=== PATIENT | male | born 1940 | race Caucasian/White ===

== ENCOUNTER 2017-12-02 08:46 | Outpatient (CLI) | payer OTHER, MEDICARE ==
[~2017-12-02 08:46] MED LIST: APIX5TAB3 PO; ASPI-612 PO; CLOP75TA35 PO; FINA5TAB11 PO; FLAX100031 PO; OMEG1CAP54 PO; ZOC40T PO
[2017-12-02 09:23] LABS: ALANINE AMINOTRANSFERASE 27 U/L (12-78); ALBUMIN 3.5 G/DL (3.4-5.0); ALBUMIN/GLOBULIN RATIO 0.9 (1.1-1.5); ALKALINE PHOSPHATASE 81 IU/L (46-116); ANION GAP 5 (8-16); ASPARTATE AMINO TRANSFERASE 17 U/L (10-37); BILIRUBIN,TOTAL 0.8 MG/DL (0.1-1.0); BLOOD UREA NITROGEN 15 MG/DL (7-18); BUN/CREATININE RATIO 13.5 (5.4-32.0); CHLORIDE 106 MMOL/L (99-107); CHOLESTEROL 100 MG/DL (0-200); CREATININE 1.11 MG/DL (0.60-1.10); GLUCOSE 125 MG/DL (70-104); HDL CHOLESTEROL 33 MG/DL (35-60); LDL CHOLESTEROL 60 MG/DL (50-100); POTASSIUM 4.4 MMOL/L (3.5-5.1); SODIUM 142 MMOL/L (135-145); TOTAL CARBON DIOXIDE 30.7 MMOL/L (24-32); TOTAL PROTEIN 7.4 G/DL (6.4-8.2); TRIGLYCERIDES 53 MG/DL (20-135); eGFR 64 ML/MIN
== END 2017-12-02 23:59 | disposition home or self-care (01) ==
LOC: VAS 08:46
PROVIDERS: ATTEND Internal Medicine Interventional Cardiology
DX: I65.23 Occlusion and stenosis of bilateral carotid arteries (principal); I71.4 Abdominal aortic aneurysm, without rupture; I25.810 Atherosclerosis of coronary artery bypass graft(s) without angina pectoris; J44.9 Chronic obstructive pulmonary disease, unspecified; E78.4 Other hyperlipidemia; F17.200 Nicotine dependence, unspecified, uncomplicated; Z98.890 Other specified postprocedural states
CPT/HCPCS: 36415; 80053; 80061; 93880; 93978

== ENCOUNTER 2018-02-13 08:03 | Outpatient (CLI) | payer OTHER, MEDICARE ==
[2018-02-13 08:59] LABS: ALANINE AMINOTRANSFERASE 36 U/L (12-78); ALBUMIN 3.5 G/DL (3.4-5.0); ALBUMIN/GLOBULIN RATIO 0.9 (1.1-1.5); ALKALINE PHOSPHATASE 100 IU/L (46-116); ANION GAP 4 (8-16); ASPARTATE AMINO TRANSFERASE 21 U/L (10-37); BILIRUBIN,TOTAL 0.5 MG/DL (0.1-1.0); BLOOD UREA NITROGEN 17 MG/DL (7-18); BUN/CREATININE RATIO 14.7 (5.4-32.0); CHLORIDE 104 MMOL/L (99-107); CHOL/HDL RATIO 3.7 (0.00-4.99); CHOLESTEROL 110 MG/DL (0-200); CREATININE 1.16 MG/DL (0.60-1.10); GLUCOSE 139 MG/DL (70-104); HDL CHOLESTEROL 30 MG/DL (35-60); LDL CHOLESTEROL 63 MG/DL (50-100); POTASSIUM 4.4 MMOL/L (3.5-5.1); SODIUM 139 MMOL/L (135-145); TOTAL CARBON DIOXIDE 30.7 MMOL/L (24-32); TOTAL PROTEIN 7.4 G/DL (6.4-8.2); TRIGLYCERIDES 86 MG/DL (20-135); eGFR 61 ML/MIN
== END 2018-02-13 23:59 | disposition home or self-care (01) ==
LOC: LAB 08:03
PROVIDERS: ATTEND Family Medicine
DX: Z00.01 Encounter for general adult medical examination with abnormal findings (principal); E78.4 Other hyperlipidemia; F17.200 Nicotine dependence, unspecified, uncomplicated; J44.9 Chronic obstructive pulmonary disease, unspecified; N40.0 Benign prostatic hyperplasia without lower urinary tract symptoms; Z79.82 Long term (current) use of aspirin; Z98.890 Other specified postprocedural states
CPT/HCPCS: 36415; 80053; 80061; 84153

== ENCOUNTER 2018-02-15 15:25 | Outpatient (CLI) | payer OTHER, MEDICARE | END 2018-02-15 23:59 | disposition home or self-care (01) | LOC: RAD 15:25 | PROVIDERS: ATTEND Nurse Practitioner Family | DX: I51.7 Cardiomegaly (principal); J44.9 Chronic obstructive pulmonary disease, unspecified; F17.200 Nicotine dependence, unspecified, uncomplicated | CPT/HCPCS: 71046; 87081 ==

== ENCOUNTER 2018-03-20 08:51 | Emergency (ER) | payer OTHER, MEDICARE ==
[~2018-03-20] VITALS: Ht 175.3 cm; Wt 86.5 kg
[2018-03-20] MEDS ORDERED: ipratropium/albuterol 3ml nebule NEB ONE (09:20)
[2018-03-20] MEDS ORDERED: methylPREDNISolone sod succ 125mg/2ml vial IV ONE (09:20)
[2018-03-20] MEDS ORDERED: normal saline 1000ML IV soln IVB ONE (09:20)
[2018-03-20] MEDS ORDERED: normal saline 1000ML IV soln IV ONE (09:30)
[2018-03-20 09:41] LABS: BASOPHILS # (AUTO) 0.1 X10'3 (0-0.2); BASOPHILS % (AUTO) 0.7 % (0-1); EOSINOPHILS # (AUTO) 0.3 X10'3 (0-0.9); EOSINOPHILS % (AUTO) 3.6 % (0-6); HEMATOCRIT 50.2 % (42.0-52.0); LYMPHOCYTES # (AUTO) 3.2 X10'3 (1.1-4.8); MEAN CORPUSCULAR HEMOGLOBIN 30.7 PG (27.0-31.0); MEAN CORPUSCULAR HGB CONC 33.8 % (33.0-36.5); MEAN CORPUSCULAR VOLUME 90.7 FL (78-98); MEAN PLATELET VOLUME 8.3 FL (7.4-10.4); MONOCYTES # (AUTO) 0.4 X10'3 (0-0.9); MONOCYTES % (AUTO) 5.6 % (2-12); NEUTROPHILS % (AUTO) 50.1 % (42-75); PLATELET COUNT 179 X10'3 (140-440); RED BLOOD COUNT 5.54 X10'6 (4.70-6.10); RED CELL DISTRIBUTION WIDTH 14.6 % (11.5-14.5)
[2018-03-20] MEDS ORDERED: tetanus & diphtheria toxoid (Td) vaccine 0.5ml IMVAC ONE (09:50)
[2018-03-20] MEDS ORDERED: TETanus/Pertussis (Acell)/Diphther VAC/PF (Tdap-Adult) 0.5ml syringe IMVAC ONE (09:55)
[2018-03-20 10:01] LABS: ALANINE AMINOTRANSFERASE 27 U/L (12-78); ALBUMIN 3.4 G/DL (3.4-5.0); ALBUMIN/GLOBULIN RATIO 0.9 (1.1-1.5); ALKALINE PHOSPHATASE 93 IU/L (46-116); ANION GAP 9 (8-16); ASPARTATE AMINO TRANSFERASE 17 U/L (10-37); BILIRUBIN,TOTAL 0.5 MG/DL (0.1-1.0); BLOOD UREA NITROGEN 17 MG/DL (7-18); BUN/CREATININE RATIO 19.5 (5.4-32.0); CALCIUM 9.2 MG/DL (8.5-10.1); CHLORIDE 105 MMOL/L (99-107); CREATININE 0.87 MG/DL (0.60-1.10); GLUCOSE 103 MG/DL (70-104); SODIUM 138 MMOL/L (135-145); TOTAL CARBON DIOXIDE 23.9 MMOL/L (24-32); TOTAL PROTEIN 7.2 G/DL (6.4-8.2); eGFR 85 ML/MIN
[2018-03-20] MEDS ORDERED: AZIT250T2 PO (10:35)
[2018-03-20] MEDS ORDERED: PRED20TA PO (10:36)
[2018-03-20] MEDS ORDERED: ALBU6.7H INH (10:36)
[2018-03-20 11:21] VITALS: BP 150/91
== END 2018-03-20 11:23 | disposition home or self-care (01) ==
LOC: ER 08:51
DX: J44.1 Chronic obstructive pulmonary disease with (acute) exacerbation (principal); I25.10 Atherosclerotic heart disease of native coronary artery without angina pectoris; E78.00 Pure hypercholesterolemia, unspecified; Z86.73 Personal history of transient ischemic attack (TIA), and cerebral infarction without residual deficits; F17.200 Nicotine dependence, unspecified, uncomplicated; Z95.1 Presence of aortocoronary bypass graft; Z79.82 Long term (current) use of aspirin; Z79.899 Other long term (current) drug therapy
CPT/HCPCS: 36415; 71046; 80053; 83605; 84145; 85025; 87040; 87081; 90471; 90715; 93005; 94640; 94760; 96374; 99285; J2930; J7030

== ENCOUNTER 2018-04-19 08:51 | Outpatient (CLI) | payer OTHER, MEDICARE ==
[~2018-04-19 08:51] MED LIST changes: +ALBU6.7H INH
== END 2018-04-19 23:59 | disposition home or self-care (01) ==
LOC: 64 CT 08:51
PROVIDERS: ATTEND Nurse Practitioner Family
DX: Z12.2 Encounter for screening for malignant neoplasm of respiratory organs (principal); R91.1 Solitary pulmonary nodule; F17.210 Nicotine dependence, cigarettes, uncomplicated; I25.2 Old myocardial infarction; J44.9 Chronic obstructive pulmonary disease, unspecified
CPT/HCPCS: 71250

== ENCOUNTER 2018-06-08 10:49 | Emergency (ER) | payer OTHER, MEDICARE ==
[~2018-06-08] VITALS: Ht 175.3 cm; Wt 88.6 kg
[2018-06-08 11:19] LABS: BASOPHILS % (AUTO) 0.5 % (0-1); EOSINOPHILS # (AUTO) 0.2 X10'3 (0-0.9); EOSINOPHILS % (AUTO) 2.9 % (0-6); HEMATOCRIT 49.8 % (42.0-52.0); HEMOGLOBIN 16.6 g/dl (14.0-17.9); LYMPHOCYTES # (AUTO) 2.3 X10'3 (1.1-4.8); LYMPHOCYTES % (AUTO) 33.2 % (21-51); MEAN CORPUSCULAR HEMOGLOBIN 30.8 PG (27.0-31.0); MEAN CORPUSCULAR HGB CONC 33.3 % (33.0-36.5); MEAN CORPUSCULAR VOLUME 92.6 FL (78-98); MEAN PLATELET VOLUME 9.2 FL (7.4-10.4); MONOCYTES # (AUTO) 0.4 X10'3 (0-0.9); MONOCYTES % (AUTO) 5.2 % (2-12); NEUTROPHILS # (AUTO) 4.1 X10'3 (1.8-7.7); NEUTROPHILS % (AUTO) 58.2 % (42-75); PLATELET COUNT 183 X10'3 (140-440); RED BLOOD COUNT 5.38 X10'6 (4.70-6.10); RED CELL DISTRIBUTION WIDTH 14.9 % (11.5-14.5)
[2018-06-08 11:30] LABS: INR 1.2 INR; PARTIAL THROMBOPLASTIN TIME 31 SECONDS (22-32); PROTHROMBIN TIME 11.7 SECONDS (9.0-12.0)
[2018-06-08 11:32] LABS: ALANINE AMINOTRANSFERASE 33 U/L (12-78); ALBUMIN 3.7 G/DL (3.4-5.0); ALKALINE PHOSPHATASE 88 IU/L (46-116); ANION GAP 6 (8-16); ASPARTATE AMINO TRANSFERASE 21 U/L (10-37); BLOOD UREA NITROGEN 21 MG/DL (7-18); BUN/CREATININE RATIO 18.4 (5.4-32.0); CALCIUM 9.5 MG/DL (8.5-10.1); CHLORIDE 104 MMOL/L (99-107); CREATININE 1.14 MG/DL (0.60-1.10); GLUCOSE 146 MG/DL (70-104); POTASSIUM 4.3 MMOL/L (3.5-5.1); SODIUM 140 MMOL/L (135-145); TOTAL CARBON DIOXIDE 30.5 MMOL/L (24-32); TOTAL PROTEIN 7.5 G/DL (6.4-8.2); eGFR 62 ML/MIN
[2018-06-08] MEDS ORDERED: LEVO500T2 PO (13:01)
[2018-06-08] MEDS ORDERED: LACT10SO PO (13:05)
[2018-06-08] MEDS ORDERED: BISA-155 PO (13:05)
[2018-06-08 13:20] VITALS: BP 140/94
== END 2018-06-08 13:21 | disposition home or self-care (01) ==
LOC: ER 10:49
DX: R10.84 Generalized abdominal pain (principal); R05 Cough; R06.02 Shortness of breath; I25.10 Atherosclerotic heart disease of native coronary artery without angina pectoris; E78.00 Pure hypercholesterolemia, unspecified; J44.9 Chronic obstructive pulmonary disease, unspecified; Z86.73 Personal history of transient ischemic attack (TIA), and cerebral infarction without residual deficits; F17.200 Nicotine dependence, unspecified, uncomplicated; Z98.61 Coronary angioplasty status; Z95.1 Presence of aortocoronary bypass graft; Z79.82 Long term (current) use of aspirin; Z79.2 Long term (current) use of antibiotics; Z79.899 Other long term (current) drug therapy
CPT/HCPCS: 36415; 71045; 74176; 80053; 84484; 85025; 85610; 85730; 93005; 99284

== ENCOUNTER 2018-06-30 09:35 | Outpatient (CLI) | payer OTHER, MEDICARE ==
[~2018-06-30 09:35] MED LIST changes: +ASPI-1071 PO; -ASPI-612 PO; +BUDE10.22 INH; -CLOP75TA35 PO; +COR3.125T PO; -FINA5TAB11 PO; +FURO-150 PO; +LISI2.5T2 PO; +NITR0.4T51 SL; +POTA10TA36 PO; +TICA90TA PO
[2018-06-30] MEDS ORDERED: BARIUM SULFATE 340 ML SUSP.RECON***PROCEDURE AREA ONLY**DONT ENTER PO ONE (09:40)
== END 2018-06-30 23:59 | disposition home or self-care (01) ==
LOC: RAD 09:35
PROVIDERS: ATTEND Otolaryngology
DX: R13.14 Dysphagia, pharyngoesophageal phase (principal); J44.9 Chronic obstructive pulmonary disease, unspecified; I25.2 Old myocardial infarction; Z87.891 Personal history of nicotine dependence; Z79.82 Long term (current) use of aspirin
CPT/HCPCS: 74220

== ENCOUNTER 2018-07-12 07:21 | Outpatient (CLI) | payer OTHER, MEDICARE ==
[~2018-07-12] VITALS: Ht 175.3 cm; Wt 83.5 kg
[2018-07-12 07:51] LABS: ABG BASE EXCESS 0.4 mmol/L (-2.0-3.0); ABG HCO3 24.8 mmol/L (22.0-26.0); ABG PCO2 (T) 39.7 mmHg (35.0-48.0); ABG PH (T) 7.414 (7.350-7.450); ABG PO2 (T) 77.2 mmHg (83-108); ALLEN'S TEST Positive; FCOHb 3.4 % (0.5-1.5); FMetHb 0.1 % (0.3-1.12); FO2Hb 92.6 % (94-100); TOTAL HEMOGLOBIN 17.2 G/dl (14.0-18.0)
[2018-07-12] MEDS ORDERED: albuterol 2.5 MG/3 ML nebule NEB ONE (08:15)
== END 2018-07-12 23:59 | disposition home or self-care (01) ==
LOC: RT 07:21
PROVIDERS: ATTEND Internal Medicine Pulmonary Disease
DX: G47.33 Obstructive sleep apnea (adult) (pediatric) (principal); R06.09 Other forms of dyspnea; J44.9 Chronic obstructive pulmonary disease, unspecified; I25.2 Old myocardial infarction; F17.210 Nicotine dependence, cigarettes, uncomplicated; Z79.82 Long term (current) use of aspirin
CPT/HCPCS: 36600; 82803; 85018; 94060; 94727; 94729; 94760

== ENCOUNTER 2018-07-18 13:07 | Outpatient (CLI) | payer OTHER, MEDICARE | END 2018-07-18 23:59 | disposition home or self-care (01) | LOC: CARD DIAG 13:07 | PROVIDERS: ATTEND Internal Medicine Interventional Cardiology | DX: I08.1 Rheumatic disorders of both mitral and tricuspid valves (principal); I48.91 Unspecified atrial fibrillation; I25.10 Atherosclerotic heart disease of native coronary artery without angina pectoris; I10 Essential (primary) hypertension; I25.2 Old myocardial infarction; J44.9 Chronic obstructive pulmonary disease, unspecified; F17.200 Nicotine dependence, unspecified, uncomplicated; Z95.1 Presence of aortocoronary bypass graft; Z79.82 Long term (current) use of aspirin | CPT/HCPCS: 93306 ==

== ENCOUNTER 2018-07-21 08:13 | Outpatient (CLI) | payer OTHER, MEDICARE | END 2018-07-21 23:59 | disposition home or self-care (01) | LOC: 64 CT 08:13 | PROVIDERS: ATTEND Nurse Practitioner Family | DX: Z72.0 Tobacco use (principal); G47.33 Obstructive sleep apnea (adult) (pediatric); I10 Essential (primary) hypertension; R91.1 Solitary pulmonary nodule; R06.00 Dyspnea, unspecified | CPT/HCPCS: 71250 ==

== ENCOUNTER 2018-08-08 11:19 | Outpatient (CLI) | payer OTHER, MEDICARE | END 2018-08-08 23:59 | disposition home or self-care (01) | LOC: LAB 11:19 | PROVIDERS: ATTEND Family Medicine | DX: Z12.5 Encounter for screening for malignant neoplasm of prostate (principal); R79.9 Abnormal finding of blood chemistry, unspecified; J44.9 Chronic obstructive pulmonary disease, unspecified; I25.2 Old myocardial infarction; F17.200 Nicotine dependence, unspecified, uncomplicated; Z79.82 Long term (current) use of aspirin | CPT/HCPCS: 36415; 84153 ==

== ENCOUNTER 2018-08-16 07:56 | Emergency (ER) | payer OTHER, MEDICARE ==
[~2018-08-16] VITALS: Ht 175.3 cm; Wt 80.9 kg
[2018-08-16 08:01] VITALS: BP 142/79
[2018-08-16] MEDS ORDERED: ipratropium/albuterol 3ml nebule NEB ONE (08:05)
[2018-08-16] MEDS ORDERED: ALBU8HFA PO (08:57)
[2018-08-16] MEDS ORDERED: DOXY100C43 PO (08:57)
[2018-08-16] MEDS ORDERED: PRED20TA PO (08:57)
== END 2018-08-16 09:10 | disposition home or self-care (01) ==
LOC: ER 07:58
DX: J20.9 Acute bronchitis, unspecified (principal); I48.91 Unspecified atrial fibrillation; I25.10 Atherosclerotic heart disease of native coronary artery without angina pectoris; E78.00 Pure hypercholesterolemia, unspecified; J44.9 Chronic obstructive pulmonary disease, unspecified; F17.290 Nicotine dependence, other tobacco product, uncomplicated; Z95.1 Presence of aortocoronary bypass graft; Z86.73 Personal history of transient ischemic attack (TIA), and cerebral infarction without residual deficits; Z79.82 Long term (current) use of aspirin
CPT/HCPCS: 71046; 94640; 94760; 99283; 99406

== ENCOUNTER 2018-08-25 11:02 | Emergency (ER) | payer OTHER, MEDICARE ==
[~2018-08-25] VITALS: Ht 175.3 cm; Wt 83.2 kg
[~2018-08-25 11:02] MED LIST changes: +ALBU8HFA PO; +PRED20TA PO
[2018-08-25 11:28] VITALS: BP 111/89
[2018-08-25] MEDS ORDERED: fluconazole 150mg tablet PO ONE (15:05)
[2018-08-25] MEDS ORDERED: PRED20TA PO (15:06)
[2018-08-25] MEDS ORDERED: CLIN300C53 PO (15:06)
[2018-08-25] MEDS ORDERED: NYST1000 PO (15:14)
== END 2018-08-25 15:23 | disposition home or self-care (01) ==
LOC: ER 11:03
DX: J02.9 Acute pharyngitis, unspecified (principal); B37.0 Candidal stomatitis; B37.81 Candidal esophagitis; I48.91 Unspecified atrial fibrillation; I25.10 Atherosclerotic heart disease of native coronary artery without angina pectoris; E78.00 Pure hypercholesterolemia, unspecified; J44.9 Chronic obstructive pulmonary disease, unspecified; Z86.73 Personal history of transient ischemic attack (TIA), and cerebral infarction without residual deficits; Z95.1 Presence of aortocoronary bypass graft; Z79.82 Long term (current) use of aspirin
CPT/HCPCS: 99283

== ENCOUNTER 2018-11-17 08:45 | Emergency (ER) | payer OTHER, MEDICARE ==
[~2018-11-17] VITALS: Ht 175.3 cm; Wt 83.5 kg
[~2018-11-17 08:45] MED LIST changes: -ALBU8HFA PO; -PRED20TA PO
[2018-11-17 09:16] VITALS: BP 141/80
[2018-11-17] MEDS ORDERED: PRED20TA PO (09:54)
[2018-11-17] MEDS ORDERED: DOXY100C2 PO (09:54)
[2018-11-17] MEDS ORDERED: BENZ-16 PO (09:55)
== END 2018-11-17 10:24 | disposition home or self-care (01) ==
LOC: ER 08:46
DX: R05 Cough (principal); R09.81 Nasal congestion; J44.9 Chronic obstructive pulmonary disease, unspecified; F17.210 Nicotine dependence, cigarettes, uncomplicated; I48.91 Unspecified atrial fibrillation; I25.10 Atherosclerotic heart disease of native coronary artery without angina pectoris; E78.00 Pure hypercholesterolemia, unspecified; Z86.73 Personal history of transient ischemic attack (TIA), and cerebral infarction without residual deficits; Z95.1 Presence of aortocoronary bypass graft
CPT/HCPCS: 71045; 99283

== ENCOUNTER 2018-12-18 08:23 | Outpatient (CLI) | payer OTHER, MEDICARE ==
[~2018-12-18 08:23] MED LIST changes: -ASPI-1071 PO; -TICA90TA PO
[2018-12-18 09:05] LABS: BASOPHILS # (AUTO) 0.1 X10'3 (0-0.2); BASOPHILS % (AUTO) 0.7 % (0-1); EOSINOPHILS # (AUTO) 0.5 X10'3 (0-0.9); EOSINOPHILS % (AUTO) 4.2 % (0-6); HEMATOCRIT 50.6 % (42.0-52.0); HEMOGLOBIN 17.2 g/dl (14.0-17.9); LYMPHOCYTES # (AUTO) 3.6 X10'3 (1.1-4.8); MEAN CORPUSCULAR HEMOGLOBIN 32.2 PG (27.0-31.0); MEAN CORPUSCULAR HGB CONC 34.1 g/dL (33.0-36.5); MEAN CORPUSCULAR VOLUME 94.4 FL (78-98); MEAN PLATELET VOLUME 8.4 FL (7.4-10.4); MONOCYTES # (AUTO) 0.7 X10'3 (0-0.9); MONOCYTES % (AUTO) 5.8 % (2-12); NEUTROPHILS # (AUTO) 6.4 X10'3 (1.8-7.7); NEUTROPHILS % (AUTO) 57.3 % (42-75); PLATELET COUNT 195 X10'3 (140-440); RED BLOOD COUNT 5.36 X10'6 (4.70-6.10); RED CELL DISTRIBUTION WIDTH 14.5 % (11.5-14.5); WHITE BLOOD COUNT 11.2 X10'3 (4.5-11.0)
[2018-12-18 09:36] LABS: HEMOGLOBIN A1C 6.6 % (4.5-6.2)
[2018-12-18 09:57] LABS: ALANINE AMINOTRANSFERASE 27 U/L (12-78); ALBUMIN 3.5 G/DL (3.4-5.0); ALBUMIN/GLOBULIN RATIO 0.9 (1.1-1.5); ALKALINE PHOSPHATASE 77 IU/L (46-116); ANION GAP 4 (8-16); ASPARTATE AMINO TRANSFERASE 17 U/L (10-37); BILIRUBIN,TOTAL 0.6 MG/DL (0.1-1.0); BLOOD UREA NITROGEN 16 MG/DL (7-18); BUN/CREATININE RATIO 13.9 (5.4-32.0); CALCIUM 9.3 MG/DL (8.5-10.1); CHLORIDE 104 MMOL/L (99-107); CHOL/HDL RATIO 4.3 (0.00-4.99); CHOLESTEROL 128 MG/DL (0-200); CREATININE 1.15 MG/DL (0.60-1.10); GLUCOSE 117 MG/DL (70-104); HDL CHOLESTEROL 30 MG/DL (35-60); LDL CHOLESTEROL 81 MG/DL (50-100); POTASSIUM 4.2 MMOL/L (3.5-5.1); SODIUM 139 MMOL/L (135-145); TOTAL CARBON DIOXIDE 31.2 MMOL/L (24-32); TOTAL PROTEIN 7.3 G/DL (6.4-8.2); TRIGLYCERIDES 122 MG/DL (20-135); eGFR 62 ML/MIN
== END 2018-12-18 23:59 | disposition home or self-care (01) ==
LOC: LAB 08:23
DX: I10 Essential (primary) hypertension (principal); E78.5 Hyperlipidemia, unspecified; R73.01 Impaired fasting glucose; R53.83 Other fatigue; F17.200 Nicotine dependence, unspecified, uncomplicated
CPT/HCPCS: 36415; 80053; 80061; 83036; 84443; 85025

== ENCOUNTER 2019-02-01 08:45 | Outpatient (CLI) | payer OTHER, MEDICARE ==
[~2019-02-01 08:45] MED LIST changes: -ALBU6.7H INH; +ALBU6.7H9 INH
== END 2019-02-01 23:59 | disposition home or self-care (01) ==
LOC: 64 CT 08:45
PROVIDERS: ATTEND Otolaryngology
DX: J32.9 Chronic sinusitis, unspecified (principal); J34.9 Unspecified disorder of nose and nasal sinuses; J34.89 Other specified disorders of nose and nasal sinuses; F17.200 Nicotine dependence, unspecified, uncomplicated
CPT/HCPCS: 70486

== ENCOUNTER 2019-04-26 09:28 | Day surgery (SDC) | payer OTHER, MEDICARE ==
[~2019-04-26] VITALS: Ht 175.3 cm; Wt 84.1 kg
[~2019-04-26 09:28] MED LIST changes: +MIDAZolam 5mg/5ml vial ONE; +fentaNYL/PF 50MCG/1 ML 2ML syringe ONE
[2019-04-26 09:35] VITALS: BP 142/86
[2019-04-26] MEDS ORDERED: CARV3.12 PO (09:41)
[2019-04-26] MEDS ORDERED: ALBU6.7H9 INH (09:44)
[2019-04-26] MEDS ORDERED: FURO-150 PO (09:45)
[2019-04-26] MEDS ORDERED: LISI2.5T89 PO (09:46)
[2019-04-26] MEDS ORDERED: POTA10TA19 PO (09:46)
[2019-04-26] MEDS ORDERED: MULT-933 PO (09:47)
[2019-04-26] MEDS ORDERED: CHOL10002 PO (09:47)
[2019-04-26 10:35] VITALS: BP 124/75
[2019-04-26 10:45] VITALS: BP 124/85
[2019-04-26 10:55] VITALS: BP 133/70
== END 2019-04-26 11:14 | disposition home or self-care (01) ==
LOC: GI LAB 09:28
PROVIDERS: ATTEND Internal Medicine Gastroenterology
DX: Z12.11 Encounter for screening for malignant neoplasm of colon (principal); K62.1 Rectal polyp; K57.30 Diverticulosis of large intestine without perforation or abscess without bleeding; I25.10 Atherosclerotic heart disease of native coronary artery without angina pectoris; Z95.5 Presence of coronary angioplasty implant and graft; Z79.899 Other long term (current) drug therapy
CPT/HCPCS: 45380; 99152; J2250; J3010; J7040; A4620

== ENCOUNTER 2019-06-19 09:01 | Outpatient (CLI) | payer OTHER, MEDICARE ==
[~2019-06-19 09:01] MED LIST changes: -BUDE10.22 INH; +CARV3.12 PO; +CHOL10002 PO; -COR3.125T PO; -FLAX100031 PO; -LISI2.5T2 PO; +LISI2.5T89 PO; -MIDAZolam 5mg/5ml vial ONE; +MULT-933 PO; -NITR0.4T51 SL; +POTA10TA19 PO; -POTA10TA36 PO; -fentaNYL/PF 50MCG/1 ML 2ML syringe ONE
== END 2019-06-19 23:59 | disposition home or self-care (01) ==
LOC: VAS 09:01
PROVIDERS: ATTEND Internal Medicine Interventional Cardiology
DX: I71.4 Abdominal aortic aneurysm, without rupture (principal); I48.91 Unspecified atrial fibrillation
CPT/HCPCS: 93978

== ENCOUNTER 2019-08-09 13:23 | Outpatient (CLI) | payer OTHER, MEDICARE | END 2019-08-09 23:59 | disposition home or self-care (01) | LOC: CARD DIAG 13:23 | PROVIDERS: ATTEND Nurse Practitioner Family | DX: I08.8 Other rheumatic multiple valve diseases (principal) | CPT/HCPCS: 93306 ==

== ENCOUNTER 2019-08-20 15:48 | Outpatient (CLI) | payer OTHER, MEDICARE ==
[2019-08-20 16:34] LABS: CLARITY,URINE CLEAR (Clear); COLOR,URINE YELLOW (Yellow); GLUCOSE, URINE NEGATIVE (Neg); KETONES,URINE NEGATIVE (Neg); LEUKOCYTE ESTERASE ,URINE NEGATIVE (Neg); NITRITES, URINE NEGATIVE (Neg); OCCULT BLOOD,URINE SMALL (Neg); PROTEIN,URINE 30 mg/dl (Neg); UROBILINOGEN,URINE 0.2 E.U/dL (0.2-1.0)
[2019-08-20 16:49] LABS: UA COLLECTION TYPE NON-SPECIFIED
[2019-08-20 16:51] LABS: BACTERIA,URINE FEW /HPF (Neg); MUCUS STRANDS NONE SEEN /LPF (Neg); SQUAMOUS EPITHELIAL CELL,UR FEW /LPF (FEW); WBC,URINE 0-4 /HPF (0-4)
== END 2019-08-20 23:59 | disposition home or self-care (01) ==
LOC: LAB SPEC 15:48
PROVIDERS: ATTEND Internal Medicine Interventional Cardiology
DX: Z95.0 Presence of cardiac pacemaker (principal)
CPT/HCPCS: 81001

== ENCOUNTER 2019-09-19 05:10 | Day surgery (SDC) | payer OTHER, MEDICARE ==
[2019-09-13 17:10] LABS: ALBUMIN 3.6 G/DL (3.4-5.0); ANION GAP 6 (8-16); BASOPHILS # (AUTO) 0.1 X10'3 (0-0.2); BASOPHILS % (AUTO) 0.7 % (0-1); BLOOD UREA NITROGEN 22 MG/DL (7-18); BUN/CREATININE RATIO 17.6 (5.4-32.0); CALCIUM 9.2 MG/DL (8.5-10.1); CHLORIDE 105 MMOL/L (99-107); CREATININE 1.25 MG/DL (0.60-1.10); EOSINOPHILS # (AUTO) 0.5 X10'3 (0-0.9); EOSINOPHILS % (AUTO) 4.5 % (0-6); GLUCOSE 91 MG/DL (70-104); HEMATOCRIT 49.7 % (42.0-52.0); HEMOGLOBIN 16.8 g/dl (14.0-17.9); LYMPHOCYTES # (AUTO) 3.8 X10'3 (1.1-4.8); LYMPHOCYTES % (AUTO) 34.2 % (21-51); MEAN CORPUSCULAR HEMOGLOBIN 31.9 PG (27.0-31.0); MEAN CORPUSCULAR HGB CONC 33.8 g/dL (33.0-36.5); MEAN CORPUSCULAR VOLUME 94.5 FL (78-98); MEAN PLATELET VOLUME 8.7 FL (7.4-10.4); MONOCYTES # (AUTO) 0.8 X10'3 (0-0.9); MONOCYTES % (AUTO) 7.1 % (2-12); NEUTROPHILS % (AUTO) 53.5 % (42-75); PLATELET COUNT 198 X10'3 (140-440); RED BLOOD COUNT 5.26 X10'6 (4.70-6.10); RED CELL DISTRIBUTION WIDTH 14.6 % (11.5-14.5); SODIUM 141 MMOL/L (135-145); TOTAL CARBON DIOXIDE 29.9 MMOL/L (24-32); WHITE BLOOD COUNT 11.2 X10'3 (4.5-11.0); eGFR 56 ML/MIN
[2019-09-13 17:13] LABS: PARTIAL THROMBOPLASTIN TIME 29 SECONDS (22-32)
[~2019-09-19] VITALS: Ht 175.3 cm; Wt 87.0 kg
[2019-09-19] VITALS (8 sets, daily range): BP systolic 96–151; BP diastolic 37–82
[2019-09-19] MEDS ORDERED: normal saline 1000ml 1,000 ML IV SCH (05:30)
[2019-09-19] MEDS ORDERED: ceFAZolin inj. 2,000 MG in normal saline soln 50 ML IV ONE (05:30)
[2019-09-19] MEDS ORDERED: midazolam 2 mg/2 ml injection ONE ×2 (05:32→06:08)
[2019-09-19] MEDS ORDERED: fentaNYL/PF 50MCG/1 ML 2ML syringe ONE ×2 (05:32→06:08)
[2019-09-19] MEDS ORDERED: ceFAZolin 1000mg inj ONE ×2 (05:33→05:53)
[2019-09-19] MEDS ORDERED: LIDOcaine 1% W/epiNEPHrine 1:100,000 20ml vial ONE (05:33)
[2019-09-19] MEDS ORDERED: HYDROcodone/acetaminophen 5mg/325mg tablet PO PRN (07:00)
[2019-09-19] MEDS ORDERED: HYDROcodone/acetaminophen 10/325mg tab PO PRN (07:00)
--- NOTE | 2019-09-19 09:15 | NUR ---
pt received cefazolin in lab per Sindy ALEXIS environmental laboratory technician nurse upon report at bedside on arrival.
[2019-09-19] MEDS ORDERED: ceFAZolin 1GM/D5W- ADD-VANTAGE 50 ML IV SCH (16:00)
== END 2019-09-19 09:25 | disposition home or self-care (01) ==
LOC: SSTAY O 05:10
PROVIDERS: ATTEND Internal Medicine Interventional Cardiology
DX: I49.9 Cardiac arrhythmia, unspecified (principal); I25.10 Atherosclerotic heart disease of native coronary artery without angina pectoris; I42.9 Cardiomyopathy, unspecified; I11.0 Hypertensive heart disease with heart failure; I50.22 Chronic systolic (congestive) heart failure; I48.92 Unspecified atrial flutter; I73.9 Peripheral vascular disease, unspecified; I70.1 Atherosclerosis of renal artery; F17.210 Nicotine dependence, cigarettes, uncomplicated; I48.20 Chronic atrial fibrillation, unspecified; I71.4 Abdominal aortic aneurysm, without rupture; I65.23 Occlusion and stenosis of bilateral carotid arteries; Z95.0 Presence of cardiac pacemaker
CPT/HCPCS: 33249; 36415; 80048; 85025; 85610; 85730; C1722; C1777; J0690; J2250; J3010; J7030; 99152; 99153; A4565; A4620

== ENCOUNTER 2019-10-31 17:15 | Emergency (ER) | payer OTHER, MEDICARE ==
[~2019-10-31] VITALS: Ht 175.3 cm; Wt 88.6 kg
[2019-10-31 17:16] VITALS: BP 121/72
[2019-10-31] MEDS ORDERED: PRED20TA PO (17:50)
== END 2019-10-31 17:56 | disposition home or self-care (01) ==
LOC: ER 17:15
DX: R21 Rash and other nonspecific skin eruption (principal); I48.91 Unspecified atrial fibrillation; I25.10 Atherosclerotic heart disease of native coronary artery without angina pectoris; E78.00 Pure hypercholesterolemia, unspecified; J44.9 Chronic obstructive pulmonary disease, unspecified; Z98.61 Coronary angioplasty status; Z95.1 Presence of aortocoronary bypass graft; Z86.73 Personal history of transient ischemic attack (TIA), and cerebral infarction without residual deficits; Z98.890 Other specified postprocedural states; Z79.01 Long term (current) use of anticoagulants; Z79.899 Other long term (current) drug therapy
CPT/HCPCS: 99283

== ENCOUNTER 2019-11-09 14:58 | Emergency (ER) | payer OTHER, MEDICARE ==
[~2019-11-09] VITALS: Ht 175.3 cm; Wt 86.0 kg
[~2019-11-09 14:58] MED LIST changes: +PRED20TA PO
--- NOTE | 2019-11-09 17:05 | NUR ---
Spoke with rep from [facility]. Cata made aware our intgerrogator device is not able to transmit after several failed attempts and troubleshooting with technical support over the phone. Requested rep come to ED to assist with interrogation of Pt's device and examine the department's device. Cata stated she would be here as soon as able.
[2019-11-09 17:44] VITALS: BP 118/65
--- NOTE | 2019-11-09 17:55 | NUR ---
[facility] at bedside to complete interrogation of Pt's implanted device.
== END 2019-11-09 18:10 | disposition home or self-care (01) ==
LOC: ER 14:58
DX: R07.89 Other chest pain (principal); I48.91 Unspecified atrial fibrillation; I25.10 Atherosclerotic heart disease of native coronary artery without angina pectoris; E78.00 Pure hypercholesterolemia, unspecified; J44.9 Chronic obstructive pulmonary disease, unspecified; Z86.73 Personal history of transient ischemic attack (TIA), and cerebral infarction without residual deficits; Z98.61 Coronary angioplasty status; Z95.0 Presence of cardiac pacemaker; Z95.1 Presence of aortocoronary bypass graft; Z98.890 Other specified postprocedural states; Z79.01 Long term (current) use of anticoagulants; Z79.899 Other long term (current) drug therapy; Y04.2XXA Assault by strike against or bumped into by another person, initial encounter; Y93.89 Activity, other specified; Y92.89 Other specified places as the place of occurrence of the external cause; Y99.8 Other external cause status
CPT/HCPCS: 71046; 93005; 99283

== ENCOUNTER 2019-12-12 10:14 | Outpatient (CLI) | payer OTHER, MEDICARE ==
[~2019-12-12 10:14] MED LIST changes: -PRED20TA PO
[2019-12-12 11:11] LABS: ALBUMIN 3.4 G/DL (3.4-5.0); ANION GAP 5 (8-16); BLOOD UREA NITROGEN 22 MG/DL (7-18); BUN/CREATININE RATIO 19.3 (5.4-32.0); CALCIUM 9.1 MG/DL (8.5-10.1); CHLORIDE 105 MMOL/L (99-107); CREATININE 1.14 MG/DL (0.60-1.10); GLUCOSE 154 MG/DL (70-104); POTASSIUM 4.7 MMOL/L (3.5-5.1); SODIUM 140 MMOL/L (135-145); TOTAL CARBON DIOXIDE 30.3 MMOL/L (24-32); eGFR 62 ML/MIN
== END 2019-12-12 23:59 | disposition home or self-care (01) ==
LOC: LAB 10:14
PROVIDERS: ATTEND Internal Medicine Interventional Cardiology
DX: I42.9 Cardiomyopathy, unspecified (principal); I10 Essential (primary) hypertension; I50.9 Heart failure, unspecified; I71.4 Abdominal aortic aneurysm, without rupture; I65.23 Occlusion and stenosis of bilateral carotid arteries; I25.810 Atherosclerosis of coronary artery bypass graft(s) without angina pectoris; I70.1 Atherosclerosis of renal artery; I70.213 Atherosclerosis of native arteries of extremities with intermittent claudication, bilateral legs; E78.5 Hyperlipidemia, unspecified; I48.91 Unspecified atrial fibrillation; Z95.810 Presence of automatic (implantable) cardiac defibrillator
CPT/HCPCS: 36415; 80048

== ENCOUNTER 2020-01-17 11:28 | Outpatient (CLI) | payer BC, MEDICARE ==
[2020-01-17 12:30] LABS: ALBUMIN 3.5 G/DL (3.4-5.0); ANION GAP 8 (8-16); BLOOD UREA NITROGEN 19 MG/DL (7-18); BUN/CREATININE RATIO 16.2 (5.4-32.0); CALCIUM 9.1 MG/DL (8.5-10.1); CHLORIDE 103 MMOL/L (99-107); CREATININE 1.17 MG/DL (0.60-1.10); GLUCOSE 100 MG/DL (70-104); POTASSIUM 4.8 MMOL/L (3.5-5.1); SODIUM 138 MMOL/L (135-145); TOTAL CARBON DIOXIDE 27.3 MMOL/L (24-32); eGFR 60 ML/MIN
== END 2020-01-17 23:59 | disposition home or self-care (01) ==
LOC: LAB 11:28
PROVIDERS: ATTEND Internal Medicine Interventional Cardiology
DX: I11.0 Hypertensive heart disease with heart failure (principal); I50.9 Heart failure, unspecified
CPT/HCPCS: 36415; 80048

== ENCOUNTER 2020-01-28 08:49 | Outpatient (CLI) | payer BC, MEDICARE ==
[2020-01-28] MEDS ORDERED: iohexol 300mg/ml 100ml inj. IV ONE (09:00)
[2020-01-28] MEDS ORDERED: iohexol 300mg/ml 100ml inj. ONE (09:00)
== END 2020-01-28 23:59 | disposition home or self-care (01) ==
LOC: VAS 08:49 → 64 CT 23:59
PROVIDERS: ATTEND Internal Medicine Interventional Cardiology
DX: I65.21 Occlusion and stenosis of right carotid artery (principal); I71.4 Abdominal aortic aneurysm, without rupture; K57.30 Diverticulosis of large intestine without perforation or abscess without bleeding; J98.4 Other disorders of lung; I70.1 Atherosclerosis of renal artery; I51.7 Cardiomegaly; I70.8 Atherosclerosis of other arteries
CPT/HCPCS: 74174; 93880; Q9967

== ENCOUNTER 2020-04-18 14:54 | Emergency (ER) | payer BC, MEDICARE ==
[~2020-04-18] VITALS: Ht 175.3 cm; Wt 86.4 kg
[2020-04-18 15:12] VITALS: BP 122/68
[2020-04-18] MEDS ORDERED: cyclobenzaprine 10mg tablet PO ONE (16:15)
[2020-04-18] MEDS ORDERED: CYCL-1 PO (16:56)
== END 2020-04-18 17:21 | disposition home or self-care (01) ==
LOC: ER 14:54
DX: M54.5 Low back pain (principal); I48.91 Unspecified atrial fibrillation; I25.10 Atherosclerotic heart disease of native coronary artery without angina pectoris; E78.00 Pure hypercholesterolemia, unspecified; J44.9 Chronic obstructive pulmonary disease, unspecified; Z86.73 Personal history of transient ischemic attack (TIA), and cerebral infarction without residual deficits; Z95.0 Presence of cardiac pacemaker; Z98.890 Other specified postprocedural states; Z79.899 Other long term (current) drug therapy
CPT/HCPCS: 72100; 99283

== ENCOUNTER 2020-05-06 09:15 | Outpatient (CLI) | payer BC, MEDICARE ==
[~2020-05-06 09:15] MED LIST changes: +CYCL-1 PO
[2020-05-06 09:58] LABS: BASOPHILS # (AUTO) 0.1 X10'3 (0-0.2); EOSINOPHILS # (AUTO) 0.5 X10'3 (0-0.9); EOSINOPHILS % (AUTO) 4.9 % (0-6); HEMOGLOBIN 16.9 g/dl (14.0-17.9); LYMPHOCYTES # (AUTO) 2.9 X10'3 (1.1-4.8); LYMPHOCYTES % (AUTO) 30.1 % (21-51); MEAN CORPUSCULAR HEMOGLOBIN 32.2 PG (27.0-31.0); MEAN CORPUSCULAR HGB CONC 33.8 g/dL (33.0-36.5); MEAN CORPUSCULAR VOLUME 95.1 FL (78-98); MEAN PLATELET VOLUME 8.6 FL (7.4-10.4); MONOCYTES # (AUTO) 0.5 X10'3 (0-0.9); MONOCYTES % (AUTO) 4.9 % (2-12); NEUTROPHILS # (AUTO) 5.8 X10'3 (1.8-7.7); NEUTROPHILS % (AUTO) 59.1 % (42-75); PLATELET COUNT 192 X10'3 (140-440); RED BLOOD COUNT 5.26 X10'6 (4.70-6.10); RED CELL DISTRIBUTION WIDTH 14.3 % (11.5-14.5); WHITE BLOOD COUNT 9.8 X10'3 (4.5-11.0)
[2020-05-06 10:13] LABS: ALANINE AMINOTRANSFERASE 27 U/L (12-78); ALBUMIN 3.5 G/DL (3.4-5.0); ALBUMIN/GLOBULIN RATIO 0.9 (1.1-1.5); ALKALINE PHOSPHATASE 87 IU/L (46-116); ANION GAP 9 (8-16); ASPARTATE AMINO TRANSFERASE 19 U/L (10-37); BILIRUBIN,TOTAL 0.6 MG/DL (0.1-1.0); BLOOD UREA NITROGEN 23 MG/DL (7-18); BUN/CREATININE RATIO 18.7 (5.4-32.0); CALCIUM 9.1 MG/DL (8.5-10.1); CHLORIDE 104 MMOL/L (99-107); CHOL/HDL RATIO 4.6 (0.00-4.99); CHOLESTEROL 125 MG/DL (0-200); CREATININE 1.23 MG/DL (0.60-1.10); GLUCOSE 145 MG/DL (70-104); HDL CHOLESTEROL 27 MG/DL (35-60); LDL CHOLESTEROL 81 MG/DL (50-100); POTASSIUM 4.8 MMOL/L (3.5-5.1); SODIUM 141 MMOL/L (135-145); TOTAL CARBON DIOXIDE 28.4 MMOL/L (24-32); TOTAL PROTEIN 7.5 G/DL (6.4-8.2); TRIGLYCERIDES 125 MG/DL (20-135); eGFR 57 ML/MIN
== END 2020-05-06 23:59 | disposition home or self-care (01) ==
LOC: LAB 09:15
PROVIDERS: ATTEND Nurse Practitioner Family
DX: Z00.00 Encounter for general adult medical examination without abnormal findings (principal); E78.00 Pure hypercholesterolemia, unspecified; I10 Essential (primary) hypertension; R73.01 Impaired fasting glucose
CPT/HCPCS: 36415; 80053; 80061; 83036; 83735; 85025

== ENCOUNTER 2020-06-17 07:57 | Outpatient (CLI) | payer BC, MEDICARE ==
[2020-06-17 09:27] LABS: ALANINE AMINOTRANSFERASE 27 U/L (12-78); ALBUMIN/GLOBULIN RATIO 0.7 (1.1-1.5); ALKALINE PHOSPHATASE 106 IU/L (46-116); ANION GAP 4 (8-16); ASPARTATE AMINO TRANSFERASE 19 U/L (10-37); BILIRUBIN,TOTAL 0.4 MG/DL (0.1-1.0); BLOOD UREA NITROGEN 20 MG/DL (7-18); BUN/CREATININE RATIO 17.5 (5.4-32.0); CALCIUM 9.2 MG/DL (8.5-10.1); CHLORIDE 106 MMOL/L (99-107); CREATININE 1.14 MG/DL (0.60-1.10); GLUCOSE 162 MG/DL (70-104); MAGNESIUM 1.8 MG/DL (1.5-2.4); POTASSIUM 4.3 MMOL/L (3.5-5.1); SODIUM 141 MMOL/L (135-145); TOTAL CARBON DIOXIDE 31.4 MMOL/L (24-32); TOTAL PROTEIN 7.4 G/DL (6.4-8.2); eGFR 62 ML/MIN
== END 2020-06-17 23:59 | disposition home or self-care (01) ==
LOC: LAB 07:57
PROVIDERS: ATTEND Internal Medicine Interventional Cardiology
DX: I48.0 Paroxysmal atrial fibrillation (principal)
CPT/HCPCS: 36415; 80053; 80162; 83735

== ENCOUNTER 2020-07-07 09:37 | Emergency (ER) | payer BC, MEDICARE ==
[~2020-07-07] VITALS: Ht 175.3 cm; Wt 83.6 kg
[2020-07-07 09:55] VITALS: BP 138/72
--- NOTE | 2020-07-07 10:28 | NUR ---
Sudden onset of dizziness when turning head while IV was being placed. 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
[2020-07-07 10:46] LABS: BASOPHILS # (AUTO) 0.1 X10'3 (0-0.2); BASOPHILS % (AUTO) 1.4 % (0-1); EOSINOPHILS # (AUTO) 0.5 X10'3 (0-0.9); HEMATOCRIT 45.6 % (42.0-52.0); HEMOGLOBIN 15.3 g/dl (14.0-17.9); LYMPHOCYTES # (AUTO) 2.8 X10'3 (1.1-4.8); LYMPHOCYTES % (AUTO) 32.4 % (21-51); MEAN CORPUSCULAR HEMOGLOBIN 31.3 PG (27.0-31.0); MEAN CORPUSCULAR HGB CONC 33.5 g/dL (33.0-36.5); MEAN CORPUSCULAR VOLUME 93.5 FL (78-98); MONOCYTES # (AUTO) 0.6 X10'3 (0-0.9); MONOCYTES % (AUTO) 6.6 % (2-12); NEUTROPHILS # (AUTO) 4.6 X10'3 (1.8-7.7); NEUTROPHILS % (AUTO) 53.6 % (42-75); PLATELET COUNT 185 X10'3 (140-440); RED BLOOD COUNT 4.87 X10'6 (4.70-6.10); RED CELL DISTRIBUTION WIDTH 14.5 % (11.5-14.5); WHITE BLOOD COUNT 8.5 X10'3 (4.5-11.0)
[2020-07-07 10:59] LABS: ALANINE AMINOTRANSFERASE 25 U/L (12-78); ALBUMIN 3.2 G/DL (3.4-5.0); ALBUMIN/GLOBULIN RATIO 0.8 (1.1-1.5); ALKALINE PHOSPHATASE 97 IU/L (46-116); ANION GAP 5 (8-16); ASPARTATE AMINO TRANSFERASE 15 U/L (10-37); BILIRUBIN,TOTAL 0.6 MG/DL (0.1-1.0); BLOOD UREA NITROGEN 17 MG/DL (7-18); BUN/CREATININE RATIO 15.9 (5.4-32.0); CALCIUM 9.1 MG/DL (8.5-10.1); CHLORIDE 104 MMOL/L (99-107); CREATININE 1.07 MG/DL (0.60-1.10); GLUCOSE 179 MG/DL (70-104); POTASSIUM 4.4 MMOL/L (3.5-5.1); SODIUM 139 MMOL/L (135-145); TOTAL CARBON DIOXIDE 30.5 MMOL/L (24-32); eGFR 67 ML/MIN
[2020-07-07] MEDS ORDERED: diazepam 5mg tablet PO ONE (11:15)
[2020-07-07] MEDS ORDERED: MECL-226 PO (12:24)
[2020-07-07] MEDS ORDERED: ONDA4TAB6 PO (12:24)
== END 2020-07-07 12:28 | disposition home or self-care (01) ==
LOC: ER 09:38
DX: R42 Dizziness and giddiness (principal); I48.91 Unspecified atrial fibrillation; I25.10 Atherosclerotic heart disease of native coronary artery without angina pectoris; J44.9 Chronic obstructive pulmonary disease, unspecified; E78.00 Pure hypercholesterolemia, unspecified; Z86.73 Personal history of transient ischemic attack (TIA), and cerebral infarction without residual deficits; Z95.0 Presence of cardiac pacemaker; Z95.1 Presence of aortocoronary bypass graft; Z98.61 Coronary angioplasty status; Z79.899 Other long term (current) drug therapy
CPT/HCPCS: 36415; 71045; 80053; 83880; 84484; 85025; 93005; 99285

== ENCOUNTER 2020-09-11 10:58 | Outpatient (CLI) | payer BC, MEDICARE ==
[2020-09-09 08:39] LABS: ALANINE AMINOTRANSFERASE 23 U/L (12-78); ALBUMIN 3.3 G/DL (3.4-5.0); ALBUMIN/GLOBULIN RATIO 0.8 (1.1-1.5); ALKALINE PHOSPHATASE 89 IU/L (46-116); ANION GAP 5 (8-16); ASPARTATE AMINO TRANSFERASE 15 U/L (10-37); BILIRUBIN,TOTAL 0.5 MG/DL (0.1-1.0); BLOOD UREA NITROGEN 21 MG/DL (7-18); BUN/CREATININE RATIO 19.6 (5.4-32.0); CHLORIDE 103 MMOL/L (99-107); CREATININE 1.07 MG/DL (0.60-1.10); GLUCOSE 135 MG/DL (70-104); POTASSIUM 4.2 MMOL/L (3.5-5.1); SODIUM 138 MMOL/L (135-145); TOTAL CARBON DIOXIDE 29.8 MMOL/L (24-32); TOTAL PROTEIN 7.3 G/DL (6.4-8.2); eGFR 67 ML/MIN
[~2020-09-11 10:58] MED LIST changes: +MECL-226 PO; +ONDA4TAB6 PO
[2020-09-11] MEDS ORDERED: iohexol 350MG/ML 100ml bottle IV ONE (11:15)
== END 2020-09-11 23:59 | disposition home or self-care (01) ==
LOC: 64 CT 10:58
PROVIDERS: ATTEND Surgery Vascular Surgery
DX: T82.330A Leakage of aortic (bifurcation) graft (replacement), initial encounter (principal); I71.4 Abdominal aortic aneurysm, without rupture; K57.30 Diverticulosis of large intestine without perforation or abscess without bleeding; K80.20 Calculus of gallbladder without cholecystitis without obstruction; N40.0 Benign prostatic hyperplasia without lower urinary tract symptoms; I70.0 Atherosclerosis of aorta; I51.7 Cardiomegaly; J98.11 Atelectasis; X58.XXXA Exposure to other specified factors, initial encounter; Y93.89 Activity, other specified; Y92.89 Other specified places as the place of occurrence of the external cause; Y99.8 Other external cause status
CPT/HCPCS: 36415; 74174; 80053; Q9967

== ENCOUNTER 2020-09-11 11:00 | Outpatient (CLI) | payer BC, MEDICARE | END 2020-09-11 23:59 | disposition home or self-care (01) | LOC: CARD DIAG 11:00 | PROVIDERS: ATTEND Physician Assistant | DX: I08.8 Other rheumatic multiple valve diseases (principal); I50.9 Heart failure, unspecified | CPT/HCPCS: 93306 ==

== ENCOUNTER 2021-04-16 08:30 | Outpatient (CLI) | payer BC, MEDICARE | END 2021-04-16 23:59 | disposition home or self-care (01) | LOC: VAS 08:30 | PROVIDERS: ATTEND Internal Medicine Interventional Cardiology | DX: I65.23 Occlusion and stenosis of bilateral carotid arteries (principal); I70.213 Atherosclerosis of native arteries of extremities with intermittent claudication, bilateral legs; I70.1 Atherosclerosis of renal artery; I48.91 Unspecified atrial fibrillation; I10 Essential (primary) hypertension; I50.9 Heart failure, unspecified | CPT/HCPCS: 93880 ==

== ENCOUNTER 2021-06-13 11:53 | Emergency (ER) | payer BC, MEDICARE ==
[~2021-06-13] VITALS: Ht 170.2 cm; Wt 75.0 kg
[~2021-06-13 11:53] MED LIST changes: +POTA-192 PO; -POTA10TA19 PO
[2021-06-13 12:28] VITALS: BP 159/50
== END 2021-06-13 13:47 | disposition home or self-care (01) ==
LOC: ER 11:53
DX: M25.521 Pain in right elbow (principal); E78.00 Pure hypercholesterolemia, unspecified; I51.9 Heart disease, unspecified; J44.9 Chronic obstructive pulmonary disease, unspecified; X58.XXXA Exposure to other specified factors, initial encounter; Y93.89 Activity, other specified; Y92.89 Other specified places as the place of occurrence of the external cause; Y99.8 Other external cause status
CPT/HCPCS: 99282

== ENCOUNTER 2021-09-21 08:42 | Outpatient (CLI) | payer BC, MEDICARE | END 2021-09-21 23:59 | disposition home or self-care (01) | LOC: CARD DIAG 08:42 | PROVIDERS: ATTEND Internal Medicine Interventional Cardiology | DX: I08.1 Rheumatic disorders of both mitral and tricuspid valves (principal); I65.23 Occlusion and stenosis of bilateral carotid arteries; I25.810 Atherosclerosis of coronary artery bypass graft(s) without angina pectoris; I48.91 Unspecified atrial fibrillation; I50.9 Heart failure, unspecified | CPT/HCPCS: 93306 ==

== ENCOUNTER 2022-04-27 08:39 | Outpatient (CLI) | payer BC, MEDICARE ==
[~2022-04-27 08:39] MED LIST changes: +ALBU6.7H14 INH; -ALBU6.7H9 INH
== END 2022-04-27 23:59 | disposition home or self-care (01) ==
LOC: VAS 08:39
PROVIDERS: ATTEND Internal Medicine Interventional Cardiology
DX: I65.23 Occlusion and stenosis of bilateral carotid arteries (principal)
CPT/HCPCS: 93880

== ENCOUNTER 2022-06-09 10:25 | Outpatient (CLI) | payer BC, MEDICARE | END 2022-06-09 23:59 | disposition home or self-care (01) | LOC: RAD 10:25 | PROVIDERS: ATTEND Nurse Practitioner Family | DX: R91.1 Solitary pulmonary nodule (principal); R63.4 Abnormal weight loss; K80.20 Calculus of gallbladder without cholecystitis without obstruction; I25.10 Atherosclerotic heart disease of native coronary artery without angina pectoris; M31.9 Necrotizing vasculopathy, unspecified; M12.88 Other specific arthropathies, not elsewhere classified, other specified site; F17.200 Nicotine dependence, unspecified, uncomplicated; Z95.0 Presence of cardiac pacemaker; Z98.890 Other specified postprocedural states | CPT/HCPCS: 71250 ==

== ENCOUNTER → 2022-06-21 | Outpatient (CLI) | payer BC, MEDICARE | END | disposition home or self-care (01) | LOC: VAS 08:38 | PROVIDERS: ATTEND Internal Medicine Interventional Cardiology | DX: I70.213 Atherosclerosis of native arteries of extremities with intermittent claudication, bilateral legs (principal); I48.91 Unspecified atrial fibrillation; I70.1 Atherosclerosis of renal artery; I50.9 Heart failure, unspecified; I71.40 Abdominal aortic aneurysm, without rupture, unspecified; Z95.828 Presence of other vascular implants and grafts | CPT/HCPCS: 93978 ==

== ENCOUNTER 2022-06-29 13:27 | Emergency (ER) | payer BC, MEDICARE ==
[~2022-06-29] VITALS: Ht 175.3 cm; Wt 72.0 kg
[2022-06-29 13:47] VITALS: BP 144/76
[2022-06-29 14:02] LABS: BASOPHILS % (AUTO) 0.4 % (0-1); EOSINOPHILS # (AUTO) 0.4 X10'3 (0-0.9); HEMATOCRIT 48.3 % (42.0-52.0); HEMOGLOBIN 16.2 g/dl (14.0-17.9); LYMPHOCYTES # (AUTO) 3.3 X10'3 (1.1-4.8); LYMPHOCYTES % (AUTO) 32.8 % (21-51); MEAN CORPUSCULAR HEMOGLOBIN 31.7 PG (27.0-31.0); MEAN CORPUSCULAR HGB CONC 33.6 g/dL (33.0-36.5); MEAN CORPUSCULAR VOLUME 94.5 FL (78-98); MONOCYTES # (AUTO) 0.6 X10'3 (0-0.9); MONOCYTES % (AUTO) 6.2 % (2-12); NEUTROPHILS # (AUTO) 5.7 X10'3 (1.8-7.7); NEUTROPHILS % (AUTO) 56.6 % (42-75); PLATELET COUNT 182 X10'3 (140-440); RED BLOOD COUNT 5.11 X10'6 (4.70-6.10); RED CELL DISTRIBUTION WIDTH 14.6 % (11.5-14.5); WHITE BLOOD COUNT 10.1 X10'3 (4.5-11.0)
[2022-06-29 14:27] LABS: ALANINE AMINOTRANSFERASE 28 U/L (12-78); ALBUMIN 3.5 G/DL (3.4-5.0); ALBUMIN/GLOBULIN RATIO 0.8 (1.1-1.5); ALKALINE PHOSPHATASE 102 IU/L (46-116); ANION GAP 6 (8-16); ASPARTATE AMINO TRANSFERASE 26 U/L (10-37); BILIRUBIN,TOTAL 0.5 MG/DL (0.1-1.0); BLOOD UREA NITROGEN 21 MG/DL (7-18); BUN/CREATININE RATIO 21.2 (5.4-32.0); CALCIUM 10.2 MG/DL (8.5-10.1); CHLORIDE 101 MMOL/L (99-107); CREATININE 0.99 MG/DL (0.60-1.10); GLUCOSE 134 MG/DL (70-104); POTASSIUM 4.1 MMOL/L (3.5-5.1); SODIUM 140 MMOL/L (135-145); TOTAL PROTEIN 7.7 G/DL (6.4-8.2); eGFR 73 ML/MIN
== END 2022-06-29 14:54 | disposition home or self-care (01) ==
LOC: ER 13:28
DX: I48.91 Unspecified atrial fibrillation (principal); R05.9 Cough, unspecified; F17.200 Nicotine dependence, unspecified, uncomplicated; E78.00 Pure hypercholesterolemia, unspecified; J44.9 Chronic obstructive pulmonary disease, unspecified
CPT/HCPCS: 36415; 71045; 80053; 83880; 84484; 85025; 93005; 99285

== ENCOUNTER 2023-02-04 08:06 | Outpatient (CLI) | payer BC, MEDICARE ==
[~2023-02-04 08:06] MED LIST changes: -ALBU6.7H14 INH; +ASPI-611 PO; -CYCL-1 PO; -MECL-226 PO
== END 2023-02-04 23:59 | disposition home or self-care (01) ==
LOC: LAB 08:06
PROVIDERS: ATTEND Internal Medicine Gastroenterology
DX: K90.0 Celiac disease (principal); R13.10 Dysphagia, unspecified
CPT/HCPCS: 36415

== ENCOUNTER 2023-04-21 08:27 | Outpatient (CLI) | payer BC, MEDICARE | END 2023-04-21 23:59 | disposition home or self-care (01) | LOC: VAS 08:27 | PROVIDERS: ATTEND Internal Medicine Interventional Cardiology | DX: I65.23 Occlusion and stenosis of bilateral carotid arteries (principal); I50.22 Chronic systolic (congestive) heart failure | CPT/HCPCS: 93880 ==

== ENCOUNTER 2023-10-25 08:20 | Outpatient (CLI) | payer BC, MEDICARE ==
[2023-10-25] VITALS (7 sets, daily range): BP systolic 119–145; BP diastolic 48–77; PULSE 75–87; RESP 20–24; O2SAT 96–100
[2023-10-25] MEDS ORDERED: aminophylline 500mg/20ml vial IV ONE (09:30)
[2023-10-25] MEDS: regadenoson 0.4mg/5ml syringe IV ONE (09:47)
== END 2023-10-25 23:59 | disposition home or self-care (01) ==
LOC: RAD 08:20
PROVIDERS: ATTEND Internal Medicine Interventional Cardiology
DX: I20.9 Angina pectoris, unspecified (principal); R06.02 Shortness of breath; R07.9 Chest pain, unspecified
CPT/HCPCS: 78452; 93017; A9500; J2785

== ENCOUNTER → 2023-12-30 | Outpatient (CLI) | payer BC, MEDICARE ==
[2023-12-30 09:56] LABS: ALANINE AMINOTRANSFERASE 28 U/L (12-78); ALBUMIN 3.2 G/DL (3.4-5.0); ALBUMIN/GLOBULIN RATIO 0.8 (1.1-1.5); ALKALINE PHOSPHATASE 82 IU/L (46-116); ANION GAP 4 (8-16); ASPARTATE AMINO TRANSFERASE 14 U/L (10-37); BILIRUBIN,TOTAL 1.3 MG/DL (0.1-1.0); BLOOD UREA NITROGEN 21 MG/DL (7-18); BUN/CREATININE RATIO 16.9 (10.0-20.0); CALCIUM 9.3 MG/DL (8.5-10.1); CHLORIDE 103 MMOL/L (99-107); CHOL/HDL RATIO 2.6 (0.00-4.99); CHOLESTEROL 97 MG/DL (0-200); CREATININE 1.24 MG/DL (0.60-1.10); GLUCOSE 136 MG/DL (70-104); HDL CHOLESTEROL 38 MG/DL (35-60); LDL CHOLESTEROL 53 MG/DL (50-100); POTASSIUM 4.4 MMOL/L (3.5-5.1); SODIUM 137 MMOL/L (135-145); TOTAL CARBON DIOXIDE 30.5 MMOL/L (24-32); TOTAL PROTEIN 7.4 G/DL (6.4-8.2); TRIGLYCERIDES 60 MG/DL (20-135); eGFR 56 ML/MIN
== END | disposition home or self-care (01) ==
LOC: RAD 08:39
PROVIDERS: ATTEND Internal Medicine Interventional Cardiology
DX: I50.22 Chronic systolic (congestive) heart failure (principal); I25.10 Atherosclerotic heart disease of native coronary artery without angina pectoris
CPT/HCPCS: 36415; 80053; 80061